=== PATIENT | male | born 1970 | race Caucasian/White ===

== ENCOUNTER 2017-09-30 09:08 | Day surgery (SDC) | payer OTHER ==
[~2017-09-30] VITALS: Ht 172.7 cm; Wt 78.9 kg
== END 2017-09-30 11:32 | disposition home or self-care (01) ==
LOC: ORSCSDS 09:08
PROVIDERS: Internal Medicine Gastroenterology
PROC: 0DBL8ZX Excision of Transverse Colon, Via Natural or Artificial Opening Endoscopic, Diagnostic (ICD-10-PCS; principal; 2017-09-30 10:15)
DX: Z86.010 Personal history of colon polyps (principal); D12.3 Benign neoplasm of transverse colon; K57.30 Diverticulosis of large intestine without perforation or abscess without bleeding
CPT/HCPCS: 88305; J1980; J7120

== ENCOUNTER 2021-03-17 09:30 | Emergency (ER) | payer OTHER ==
[~2021-03-17] VITALS: Ht 172.7 cm; Wt 79.4 kg
[2021-03-17] MEDS ORDERED: HYDR1TAB94 PO (10:56)
== END 2021-03-17 11:07 | disposition home or self-care (01) ==
LOC: ER 09:30
DX: S46.912A Strain of unspecified muscle, fascia and tendon at shoulder and upper arm level, left arm, initial encounter (principal); W12.XXXA Fall on and from scaffolding, initial encounter
CPT/HCPCS: 73030; 99283-25

== ENCOUNTER 2024-07-02 07:57 | Day surgery (SDC) | payer OTHER ==
[~2024-07-02] VITALS: Ht 172.7 cm; Wt 78.4 kg
[~2024-07-02 07:57] MED LIST: HYDR1TAB94 PO
[2024-07-02] MEDS ORDERED: Lactated Ringer's 1,000 ML IV ONE ×2 (08:43→09:12)
[2024-07-02] MEDS ORDERED: propofoL 50 ML IV ONE (08:43)
[2024-07-02 10:19] VITALS: BP 118/73
== END 2024-07-02 10:21 | disposition home or self-care (01) ==
LOC: ORSCSDS 07:57
PROVIDERS: Internal Medicine Gastroenterology
PROC: 0DJD8ZZ Inspection of Lower Intestinal Tract, Via Natural or Artificial Opening Endoscopic (ICD-10-PCS; principal; 2024-07-02 09:30)
DX: Z12.11 Encounter for screening for malignant neoplasm of colon (principal); Z86.0101 Personal history of adenomatous and serrated colon polyps; D12.5 Benign neoplasm of sigmoid colon; K64.4 Residual hemorrhoidal skin tags
CPT/HCPCS: 88305; J2704; J7120